=== PATIENT | male | born 1955 | race Caucasian/White ===

== ENCOUNTER 2016-09-07 21:40 | Inpatient (IN) | payer BC ==
[~2016-09-07] VITALS: Ht 182.9 cm; Wt 95.8 kg
[2016-09-07] MEDS ORDERED: NXM/40 PO (23:44)
[2016-09-07] MEDS ORDERED: ZOLP5TAB PO (23:44)
[2016-09-07] MEDS ORDERED: SODIUM CHLORIDE 0.9% 1000ML 1,000 ML IV SCH (23:53)
--- NOTE | 2016-09-07 23:53 | History and Physical ---
History & Physical Date & Time of Service: September 07, 2016 at 23:53 Chief Complaint: Sepsis Primary Care Physician: No Doctor, Assigned History of Present Illness Source: patient The patient is a 61-year-old male who underwent a prostate biopsy by Dr. Js Avila on September 05 for elevated PSA. Yesterday he started to develop a fever with generalized joint pain and right flank pain which then radiated to his right groin. He presented to the emergency department at [facility] had a workup consistent with prostatitis sepsis and was then referred for transfer to [facility] for further treatment. The patient reports his joint pains primarily in his lower extremities. He denies nausea, vomiting, chest pain, blood in urine or stool. He did briefly feel lightheaded and dizzy, but was not presyncopal. Social History Smoking Status: Current Every Day Smoker Smokeless Tobacco Use: No Drug Use: none Marital Status: Housing status: lives with family Occupational Status: employed Multi-Drug Resistant Organisms History of MDRO: No Allergies Coded Allergies: No Known Allergies (Unverified , 09/07/16) Home Medications Scheduled Esomeprazole Magnesium (Nexium), 40 MG PO DAILY Zolpidem Tartrate (Ambien), 5 MG PO HS Review of Systems Constitutional: + chills, + fatigue, + fever, + sweats, + weakness, No weight loss Eyes: No diplopia, No discharge, No eye pain, No problem reported, No redness, No worsening of vision ENT: No dental problems, No hearing loss, No nasal symptoms, No problem reported, No sore throat, No tinnitus, No trouble swallowing, No unusual epistaxis Respiratory: No cough, No dyspnea at rest, No dyspnea on exertion, No hemoptysis, No problem reported, No shortness of breath, No sputum, No wheezing Cardiovascular: No PND, No chest pain, No claudication, No edema, No orthopnea , No palpitations, No problem reported Abdomen: + pain (right flank to right groin), No GI bleeding, No constipation, No diarrhea, No nausea, No vomiting Musculoskeletal: + joint pain, + muscle pain Genitourinary - Male: + hematuria, No dysuria, No impotence, No lesions, No penile discharge, No urinary frequency, No urinary hesitancy, No urinary incontinence, No urinary retention, No urinary urgency Neurologic: No balance problems, No memory loss, No numbness/tingling, No paralysis, No problem reported, No vertigo, No weakness Psychiatric: No anhedonism, No anxiety, No depression symptoms, No insomnia, No problem reported, No substance abuse Endocrine: No excessive thirst, No excessive urination, No fatigue, No problem reported Hematologic / Lymphatic: No abnormal bleeding/bruising, No clotting problems, No night sweats, No problem reported, No swollen lymph nodes Integumentary: No bleeding, No color change, No itch, No new/changing skin lesions, No problem reported, No rash Allergic / Immunologic: No environmental allergies, No food allergies, No frequent infections, No hives, No pet sensitivities, No poor healing, No problem reported, No prolonged convalescence, No seasonal allergies Physical Exam General Appearance: WD/WN, no apparent distress Head: normocephalic, atraumatic Eyes: normal inspection, PERRL, EOMI, sclerae normal ENT: normal ENT inspection, hearing grossly normal, pharynx normal Neck: supple, no adenopathy, thyroid normal, no JVD, no carotid bruits, trachea midline Respiratory/Chest: chest non-tender, lungs clear, normal breath sounds, no respiratory distress, no accessory muscle use Cardiovascular: regular rate, rhythm, no edema, no gallop, no JVD, no murmur, normal peripheral pulses Abdomen/GI: normal bowel sounds, soft, no organomegaly, no pulsatile mass, + tenderness (right flank to right groin) Back: normal inspection, no CVA tenderness, no muscle spasm, normal range of motion Extremities/Musculoskelatal: normal inspection, no calf tenderness, normal capillary refill, no pedal edema, normal range of motion Neurologic/Psych: c application developer II-XII nml as tested, no motor/sensory deficits, alert, normal mood/affect, oriented x 3 Skin: normal color, warm/dry, no rash Lymphatic: no adenopathy Impression Assessment and Plan Acute prostatitis status post prostate biopsy/SIRS--the patient will be admitted to the telemetry unit for close blood pressure monitoring. He received vancomycin IV and Zosyn IV at [facility]. He'll be admitted on Zosyn IV and Cipro IV, normal saline with potassium chloride 20 mEq at 150 ML's per hour , Zofran 4 mg IV every 6 hours when necessary, tramadol 50-100 mg by mouth every 4 hours when necessary, and morphine sulfate 2-4 mg IV every 2 hours when necessary. Urinalysis and urine culture and sensitivity was performed at [facility], and I repeated here along with blood cultures. We'll consult Dr. Js Avila from urology. GERD--change Nexium 40 mg by mouth daily to pantoprazole 40 mg by mouth daily. Hypomagnesemia--level here was 1.7. He'll be given mag sulfate 1 g IV. Insomnia--continue zolpidem tartrate 5 mg by mouth at bedtime. Level of Care Telemetry Advanced Directives Existing Advance Directive: No Existing Living Will: No Existing Power of Valet Service Attendant: No Resuscitation Status FULL RESUSCITATION VTE Prophylaxis Given or contraindicated: SCD's Social Service Consult None Apply
[2016-09-07] MEDS ORDERED: CIPROFLOXACIN 400MG / 200ML D5W IV STA (23:59)
[2016-09-08] VITALS (10 sets, daily range): BP systolic 111–150; BP diastolic 64–88; PULSE 110–120; TEMP 37.3–38.5; O2SAT 92–95; Ht 182.9 cm; Wt 95.8 kg
[2016-09-08] MEDS ORDERED: TRAMADOL HCL 50 MG TAB PO PRN
[2016-09-08] MEDS ORDERED: MoRPHine SULFATE 4 MG/ML 1 ML CARP\\VIAL IV PRN
[2016-09-08] MEDS ORDERED: MoRPHine SULFATE 2 MG/ML CARP IV PRN
[2016-09-08] MEDS: ONDANSETRON INJ 2 MG/ML 2 ML VIAL IV PRN ×2 (00:19→15:14)
[2016-09-08] MEDS: CIPROFLOXACIN / D5W 400 MG in PREMIXED IN D5W 200 ML IV SCH ×3 (00:24→23:06)
[2016-09-08 00:36] LABS: URINE APPEARANCE CLEAR (CLEAR); URINE BILIRUBIN NEG (NEG); URINE COLOR YELLOW; URINE EPITHELIAL CELL AUTO >30 /lpf (0-5); URINE NITRITE NEG (NEG); URINE SPECIFIC GRAVITY 1.017 (1.000-1.030); UROBILINOGEN NEG (NEG)
[2016-09-08 00:46] LABS: MEAN CORPUSCULAR HEMOGLOBIN 30.3 pg (25-34); PLATELET COUNT 210 K/uL (130-400); RED BLOOD COUNT 4.89 M/uL (4.7-6.1); WHITE BLOOD COUNT 13.08 K/uL (4.8-10.8)
[2016-09-08 00:48] LABS: MANUAL MICROSCOPIC REQUIRED? NO; REVIEW REQ? YES
[2016-09-08 01:06] LABS: ALT/SGPT 21 U/L (12-78); AST/SGOT 14 U/L (15-37); BLOOD UREA NITROGEN 16 mg/dl (7-18); BUN/CREATININE RATIO 14.5 (10-20); CALCIUM 8.1 mg/dl (8.5-10.1); CARBON DIOXIDE 25 mmol/L (21-32); CHLORIDE 106 mmol/L (98-107); GLUCOSE 97 mg/dl (70-99); MAGNESIUM 1.7 mg/dl (1.8-2.4); POTASSIUM 3.6 mmol/L (3.5-5.1); SODIUM 141 mmol/L (136-145)
[2016-09-08 01:13] LABS: ALKALINE PHOSPHATASE 81 U/L (45-117)
[2016-09-08 01:27] LABS: BASO % 0.2 %; BASO ABS # 0.03 K/uL (0-0.2); COMPLETE YES; EOS % 0.4 %; IG% 0.3 %; LYMPH % 7.6 %; MEAN CORPUSCULAR HGB CONC 33.6 g/dl (32-36); MONO % 3.7 %; NEUT % 87.8 %
[2016-09-08] MEDS ORDERED: MAGNESIUM SULFATE 1GM / D5W 1 GM in PREMIXED IN D5W 100 ML IV STA (02:04)
[2016-09-08] MEDS: POTASSIUM CHLORIDE INJ 20 MEQ in SODIUM CHLORIDE 0.9% 1000ML 1,000 ML IV SCH ×4 (02:15→22:43)
[2016-09-08] MEDS ORDERED: PIPERACILLIN/TAZOBACTAM 4.5 GM/100ML D5W IV STA (02:23)
[2016-09-08] MEDS ORDERED: PIPERACILL/TAZOBAC IV 4.5 GM in DEXTROSE 5% 100ML IV STA (02:36)
[2016-09-08] MEDS ORDERED: PIPERACILL/TAZOBAC CONSULT ACTIVE PRN (03:00)
[2016-09-08 06:44] LABS: BASO % 0.2 %; BASO ABS # 0.02 K/uL (0-0.2); COMPLETE YES; HEMATOCRIT 41.5 % (42-52); IG% 0.4 %; LYMPH % 4.8 %; LYMPH ABS # 0.56 K/uL (1.2-3.4); MEAN CELL VOLUME 91.6 fL (80-100); MEAN CORPUSCULAR HEMOGLOBIN 30.7 pg (25-34); MEAN CORPUSCULAR HGB CONC 33.5 g/dl (32-36); MEAN PLATELET VOLUME 10.1 fL (7.4-10.4); MONO % 5.2 %; NEUT % 89.4 %; PLATELET COUNT 191 K/uL (130-400); RED BLOOD COUNT 4.53 M/uL (4.7-6.1); WHITE BLOOD COUNT 11.58 K/uL (4.8-10.8)
[2016-09-08 07:11] LABS: BUN/CREATININE RATIO 14.3 (10-20); CALCIUM 8.6 mg/dl (8.5-10.1); CREATININE 1.3 mg/dl (0.60-1.40); MAGNESIUM 2.4 mg/dl (1.8-2.4)
[2016-09-08] MEDS: PIPERACILL/TAZOBAC IV 3.375 GM in DEXTROSE 5% 100ML 100 ML IV SCH ×2 (07:53→16:21)
[2016-09-08] MEDS: PANTOprazole SOD 40 MG TAB PO SCH (07:54)
[2016-09-08] MEDS: ACETAMINOPHEN 325 MG TAB PO PRN (07:56)
--- NOTE | 2016-09-08 11:09 | Urology Consultation ---
History General Date of Service: September 08, 2016. Primary Care Physician: No Doctor, Assigned Pt seen a urologist before?: Yes If yes, why?: elevated PSA History of Present Illness 61y/o male s/p recent prostate biopsy for elevated PSA - was progressing well after the biopsy until last evening - started to have fevers and general malaise - was on cipro sujata-procedure - no hematuria - no dysuria - reported to the [facility] ER - they refused to admit and transferred him here after obtaining cultures and starting vanc and zosyn - he is dramatically improved this AM - minimal discomfort - some fatigue, but otherwise feeling well Laboratory Labs were reviewed and are within normal limits unless listed below. Labs are available in the chart and at [facility] Past History GERD Pt had a problem w anesthesia?: No Past Surgical History: other Social History Hx Tobacco Use In Past Year?: Yes Smokin pack/day Marital status: Housing status: lives with family Occupation status: employed History of MDRO No Allergies Coded Allergies: No Known Allergies (Unverified , 09/07/16) Medications Home Medications: Home Meds and Scripts Medications Dose Route/Sig Max Daily Dose Days Date Category Ambien (Zolpidem Tartrate) 5 Mg Tab 5 Mg PO HS 09/07/16 Reported Nexium (Esomeprazole Magnesium) 40 Mg Capcr 40 Mg PO DAILY 09/07/16 Reported Inpatient Medications: Current Inpatient Medications Medications (Trade) Dose Ordered Sig/Fco Route Start Time Stop Time Status Last Admin Dose Admin Acetaminophen (Tylenol Tab) 650 mg Q4H PRN PO 09/08/16 00:00 10/08/16 00:00 09/08/16 07:56 650 MG Ondansetron HCl (Zofran Inj) 4 mg Q6H PRN IV 09/08/16 00:00 10/08/16 00:00 09/08/16 00:19 4 MG Morphine Sulfate (MoRPHine SULFATE INJ) 2 mg Q2H PRN IV 09/08/16 00:00 09/22/16 00:00 Morphine Sulfate (MoRPHine SULFATE INJ) 4 mg Q2H PRN IV 09/08/16 00:00 09/22/16 00:00 09/08/16 00:45 4 MG Tramadol HCl (Ultram Tab) 100 mg Q4H PRN PO 09/08/16 00:00 10/08/16 00:00 Tramadol HCl (Ultram Tab) 50 mg Q4H PRN PO 09/08/16 00:00 10/08/16 00:00 Zolpidem Tartrate (Ambien Tab) 5 mg HS PO 09/08/16 21:00 10/08/16 20:59 Pantoprazole Sodium 40 mg 40 mg QAM PO 09/08/16 09:00 10/08/16 08:59 09/08/16 07:54 40 MG Ciprofloxacin/ Dextrose 400 mg/ Prmx 200 ml @ 100 mls/hr Q12H IV 09/08/16 00:00 09/18/16 00:00 09/08/16 00:24 100 MLS/HR Potassium Chloride 20 meq/ Sodium Chloride 1,010 ml @ 150 mls/hr Q6H44M IV 09/08/16 02:15 09/08/16 07:53 150 MLS/HR Piperacillin Sod/ Tazobactam Sod/ Dextrose (Zosyn Iv/D5 100ml) 115 ml @ 28.75 mls/ hr Q8H IV 09/08/16 08:00 09/18/16 07:59 09/08/16 07:53 28.75 MLS/HR Piperacillin Sod/ Tazobactam Sod (Consult) 1 ea UD PRN N/A 09/08/16 03:00 10/08/16 02:59 Review of Systems Review of Systems Constitutional: + fever Eyes: No blurred vision, No double vision, No eye pain, No loss of night vision , No problem reported, No see HPI Neurological: No dizzy, No numbness/tingling, No passing out, No problem reported, No see HPI, No seizures Endocrine: No excessive thirst, No problem reported, No see HPI, No tired/ sluggish, No too cold, No too hot Gastrointestinal: + abdominal pain Cardiovascular: No angina, No chest pain, No heart murmur, No irregular heartbeat, No palpitations, No problem reported, No see HPI, No swelling ankles/ feet Respiratory: No chronic cough, No coughing up blood, No problem reported, No see HPI, No shortness of breath, No wheezing Skin: No boils, No dry skin, No problem reported, No rash, No see HPI Musculoskeletal: + joint pain Blood / Lymphatic: No bleed easily, No bruise easily, No problem reported, No see HPI, No swollen glands Ears / Nose / Throat: No hearing loss, No hoarse voice, No problem reported, No see HPI, No sinus, No sore throat Psychologic / Mental: No difficulty sleeping, No nervous, No problem reported, No see HPI, No trouble remembering Male : + problem reported All Other Systems: Reviewed and Negative Physical Exam Vital Signs: Vital Signs Past 12 Hours Date Time Temp Pulse Resp B/P Pulse Ox O2 Delivery O2 Flow Rate FiO2 09/08/16 09:13 37.8 09/08/16 08:00 Room Air 09/08/16 07:56 38.5 118 18 113/64 92 Room Air 09/08/16 04:27 92 Room Air 09/08/16 03:21 37.7 120 20 132/88 92 Room Air 09/08/16 00:02 37.7 118 18 111/70 95 Room Air Physical Exam: General Appearance: WD/WN, no apparent distress Eyes: bilateral eyes normal inspection ENT: hearing grossly normal Neck: no adenopathy Respiratory/Chest: no respiratory distress, no accessory muscle use Cardiovascular: no edema Gastrointestinal: Abdomen: normal abdomen Extremities: no pedal edema, no calf tenderness Neurologic/Psychiatric: alert, normal mood/affect, + abnormal cerebellar tests Skin: normal color, warm/dry Lymphatic: no adenopathy Assessment & Plan Assessment & Plan Bacteremia after prostate biopsy - cultures collected on arrival here - but after he had received IV abx at [facility] - hopeful appropriate cultures were collected at that facility prior to transfer - once resistance pattern is identified, transition to PO abx for 10d and d/c home - feeling well now - we did review his pathology - all cores were benign
[2016-09-08] MEDS: TRAMADOL HCL 50 MG TAB PO PRN (12:12)
--- NOTE | 2016-09-08 13:02 | Family Medicine Progress Note ---
Progress Note Date of Service September 08, 2016. Subjective Pt evaluation today including: conversation w/ patient, physical exam, chart review, lab review, review of studies Pain: No pain reported this morning Voiding: no voiding problems Patient reports he is feeling much better this morning, and even starting to feel improvement yesterday at 8pm. This morning his back pain is improved with only some slight discomfort on the left flank, and the joint pain in his legs has for the most part resolved. Constitutional: + fever, No chills, No sweats Respiratory: No cough, No shortness of breath Cardiovascular: No chest pain, No palpitations Abdomen: No nausea, No pain, No vomiting Musculoskeletal: + joint pain Male : No dysuria, No hematuria Medications Current Inpatient Medications Medications (Trade) Dose Ordered Sig/Fco Route Start Time Stop Time Status Last Admin Dose Admin Acetaminophen (Tylenol Tab) 650 mg Q4H PRN PO 09/08/16 00:00 10/08/16 00:00 09/08/16 07:56 650 MG Ondansetron HCl (Zofran Inj) 4 mg Q6H PRN IV 09/08/16 00:00 10/08/16 00:00 09/08/16 00:19 4 MG Morphine Sulfate (MoRPHine SULFATE INJ) 2 mg Q2H PRN IV 09/08/16 00:00 09/22/16 00:00 Morphine Sulfate (MoRPHine SULFATE INJ) 4 mg Q2H PRN IV 09/08/16 00:00 09/22/16 00:00 09/08/16 00:45 4 MG Tramadol HCl (Ultram Tab) 100 mg Q4H PRN PO 09/08/16 00:00 10/08/16 00:00 09/08/16 12:12 100 MG Tramadol HCl (Ultram Tab) 50 mg Q4H PRN PO 09/08/16 00:00 10/08/16 00:00 Zolpidem Tartrate (Ambien Tab) 5 mg HS PO 09/08/16 21:00 10/08/16 20:59 Pantoprazole Sodium 40 mg 40 mg QAM PO 09/08/16 09:00 10/08/16 08:59 09/08/16 07:54 40 MG Ciprofloxacin/ Dextrose 400 mg/ Prmx 200 ml @ 100 mls/hr Q12H IV 09/08/16 00:00 09/18/16 00:00 09/08/16 12:11 100 MLS/HR Potassium Chloride 20 meq/ Sodium Chloride 1,010 ml @ 150 mls/hr Q6H44M IV 09/08/16 02:15 09/08/16 07:53 150 MLS/HR Piperacillin Sod/ Tazobactam Sod/ Dextrose (Zosyn Iv/D5 100ml) 115 ml @ 28.75 mls/ hr Q8H IV 09/08/16 08:00 09/18/16 07:59 09/08/16 07:53 28.75 MLS/HR Piperacillin Sod/ Tazobactam Sod (Consult) 1 ea UD PRN N/A 09/08/16 03:00 10/08/16 02:59 Objective Vital Signs Date Time Temp Pulse Resp B/P Pulse Ox O2 Delivery O2 Flow Rate FiO2 09/08/16 09:13 37.8 09/08/16 08:00 Room Air 09/08/16 07:56 38.5 118 18 113/64 92 Room Air 09/08/16 04:27 92 Room Air 09/08/16 03:21 37.7 120 20 132/88 92 Room Air 09/08/16 00:02 37.7 118 18 111/70 95 Room Air Physical Exam General Appearance: WD/WN, no apparent distress Eyes: normal inspection, sclerae normal Neck: supple, no carotid bruits Respiratory/Chest: chest non-tender, lungs clear, normal breath sounds, no respiratory distress, no accessory muscle use Cardiovascular: no edema, no gallop, no murmur, + tachycardia Abdomen: normal bowel sounds, non tender, soft Extremities: no pedal edema, no calf tenderness Neurologic/Psychiatric: alert, normal mood/affect, oriented x 3 Notes: Left sided flank tenderness Laboratory Results Results Past 24 Hours Test 09/08/16 00:15 09/08/16 00:20 09/08/16 06:07 Range/Units Urine Color YELLOW Urine Appearance CLEAR CLEAR Urine pH 6.0 4.5-7.5 Urine Specific [place] 1.017 1.000-1.030 Urine Protein NEG NEG Urine Glucose (UA) NEG NEG Urine Ketones NEG NEG Urine Occult Blood 3+ NEG Urine Nitrite NEG NEG Urine Bilirubin NEG NEG Urine Urobilinogen NEG NEG Urine Leukocyte Esterase MODERATE NEG Urine WBC (Auto) >30 0-5 /hpf Urine RBC (Auto) >30 0-4 /hpf Urine Hyaline Casts (Auto) 1-5 0-5 /lpf Urine Epithelial Cells (Auto) >30 0-5 /lpf Urine Bacteria (Auto) NEG NEG Urine Renal Epithelial Cells 0-5 /lpf White Blood Count 13.08 11.58 4.8-10.8 K/uL Red Blood Count 4.89 4.53 4.7-6.1 M/uL Hemoglobin 14.8 13.9 14.0-18.0 g/dL Hematocrit 44.0 41.5 42-52 % Mean Corpuscular Volume 90.0 91.6 80-100 fL Mean Corpuscular Hemoglobin 30.3 30.7 25-34 pg Mean Corpuscular Hemoglobin Concent 33.6 33.5 32-36 g/dl Platelet Count 210 191 130-400 K/uL Mean Platelet Volume 10.0 10.1 7.4-10.4 fL Neutrophils (%) (Auto) 87.8 89.4 % Lymphocytes (%) (Auto) 7.6 4.8 % Monocytes (%) (Auto) 3.7 5.2 % Eosinophils (%) (Auto) 0.4 0.0 % Basophils (%) (Auto) 0.2 0.2 % Neutrophils # (Auto) 11.47 10.35 1.4-6.5 K/uL Lymphocytes # (Auto) 1.00 0.56 1.2-3.4 K/uL Monocytes # (Auto) 0.49 0.60 0.11-0.59 K/uL Eosinophils # (Auto) 0.05 0.00 0-0.5 K/uL Basophils # (Auto) 0.03 0.02 0-0.2 K/uL RDW Standard Deviation 43.4 45.1 36.4-46.3 fL RDW Coefficient of Variation 13.1 13.4 11.5-14.5 % Immature Granulocyte % (Auto) 0.3 0.4 % Immature Granulocyte # (Auto) 0.04 0.05 0.00-0.02 K/uL Sodium Level 141 138 136-145 mmol/L Potassium Level 3.6 4.0 3.5-5.1 mmol/L Chloride Level 106 101 98-107 mmol/L Carbon Dioxide Level 25 28 21-32 mmol/L Anion Gap 10.0 9.0 3-11 mmol/L Blood Urea Nitrogen 16 19 7-18 mg/dl Creatinine 1.10 1.30 0.60-1.40 mg/dl Estimated GFR () 82.4 67.3 Estimated GFR (Non- 71.1 58.1 BUN/Creatinine Ratio 14.5 14.3 10-20 Random Glucose 97 113 70-99 mg/dl Calcium Level 8.1 8.6 8.5-10.1 mg/dl Magnesium Level 1.7 2.4 1.8-2.4 mg/dl Total Bilirubin 2.1 0.2-1 mg/dl Aspartate Amino Transf (AST/SGOT) 14 15-37 U/L Alanine Aminotransferase (ALT/SGPT) 21 12-78 U/L Alkaline Phosphatase 81 45-117 U/L Total Protein 7.1 6.4-8.2 gm/dl Albumin 3.6 3.4-5.0 gm/dl Globulin 3.5 2.5-4.0 gm/dl Albumin/Globulin Ratio 1.0 0.9-2 Est Creatinine Clear Calc Drug Dose 69.5 ml/min Microbiology Results 09/08/16 Blood Culture, Received Pending 09/08/16 Blood Culture, Received Pending 09/08/16 Urine Culture, Received Pending Assessment and Plan Patient is a 61 year old male that presents with bacteremia s/p prostate biopsy 1) Bacteremia 2/2 Prostatitis - S/p Prostate Biopsy on September 05 - pathology results benign - IV Zosyn and IV Ciprofloxacin Day 2 - Tramadol 100mg q4h PRN - Urology on board - Culture obtained on admission but already received dose of IV Antibiotics at [facility]. Obtain records from [facility] to see if culture was performed prior to antibiotic administration - Continue IV antibiotics until culture and sensitivities obtained then will transition to PO antibiotics for a 10 day course as per Urology recommendations - Zofran 4mg IV q6h PRN - Morphine 4mg IV q2h PRN 2) Hypomagnesemia (Mg 1.7 on admission) - Resolved (2.4) after administration of 1g IV Mg 3) GERD - Protonix 40 mg PO QAM 4) DVT - SCD 5) Code Status - Full Resuscitation Reviewed: Pt Seen/Exam by Me History continued fever. feeling much better though Respiratory: negative: short of breath Cardiovascular: denies chest pain Gastrointestinal/Abdominal: negative: abdominal pain General Appearance: no apparent distress Respiratory: lungs clear, no respiratory distress Cardiovascular: regular rate, rhythm Neurologic/Psychiatric: alert, oriented x 3 Skin Characteristics: warm/dry Assessment/Plan I have reviewed the medical record and performed a history and physical examination of this patient today. I have discussed the case with Dr. Segovia. The above note reflects my findings, conclusions, and recommendations.
[2016-09-08] MEDS: ZOLPIDEM TARTRATE 5 MG TAB PO SCH (22:43)
[2016-09-09] VITALS (7 sets, daily range): BP systolic 107–138; BP diastolic 63–77; PULSE 89–102; TEMP 36.9–38.4; O2SAT 90–95
[2016-09-09] MEDS: PIPERACILL/TAZOBAC IV 3.375 GM in DEXTROSE 5% 100ML 100 ML IV SCH ×3 (01:26→16:13)
[2016-09-09] MEDS: ACETAMINOPHEN 325 MG TAB PO PRN (03:30)
[2016-09-09 06:32] LABS: BASO % 0.4 %; BASO ABS # 0.03 K/uL (0-0.2); COMPLETE YES; EOS % 0.3 %; HEMATOCRIT 38.2 % (42-52); IG% 0.5 %; LYMPH % 8.9 %; LYMPH ABS # 0.69 K/uL (1.2-3.4); MEAN CELL VOLUME 91.6 fL (80-100); MEAN CORPUSCULAR HEMOGLOBIN 29.7 pg (25-34); MEAN CORPUSCULAR HGB CONC 32.5 g/dl (32-36); MEAN PLATELET VOLUME 9.9 fL (7.4-10.4); MONO % 8.1 %; NEUT % 81.8 %; PLATELET COUNT 159 K/uL (130-400); RED BLOOD COUNT 4.17 M/uL (4.7-6.1); WHITE BLOOD COUNT 7.76 K/uL (4.8-10.8)
[2016-09-09 06:51] LABS: BUN/CREATININE RATIO 11.2 (10-20); CALCIUM 8.1 mg/dl (8.5-10.1); CREATININE 1.2 mg/dl (0.60-1.40); MAGNESIUM 2.2 mg/dl (1.8-2.4); POTASSIUM 4.1 mmol/L (3.5-5.1)
[2016-09-09] MEDS: PANTOprazole SOD 40 MG TAB PO SCH (07:50)
[2016-09-09] MEDS: POTASSIUM CHLORIDE INJ 20 MEQ in SODIUM CHLORIDE 0.9% 1000ML 1,000 ML IV SCH ×2 (07:50→12:14)
[2016-09-09] MEDS: CIPROFLOXACIN / D5W 400 MG in PREMIXED IN D5W 200 ML IV SCH ×2 (12:14→23:18)
--- NOTE | 2016-09-09 13:25 | Family Medicine Progress Note ---
Progress Note Date of Service September 09, 2016. Subjective Pt evaluation today including: conversation w/ patient, physical exam, chart review, lab review, review of studies Pain: No pain reported this morning Voiding: no voiding problems Patient is resting comfortably in bed this morning with no acute complaints overnight. The patient states he no longer has joint tenderness and is feeling much improved since yesterday. He denies any nausea, vomiting, abdominal pain, headache, or dysuria. Constitutional: No chills, No fatigue, No fever, No sweats Respiratory: No cough, No shortness of breath, No sputum Cardiovascular: No chest pain, No edema, No palpitations Abdomen: No diarrhea, No nausea, No pain, No vomiting Male : No dysuria, No hematuria Medications Current Inpatient Medications Medications (Trade) Dose Ordered Sig/Fco Route Start Time Stop Time Status Last Admin Dose Admin Acetaminophen (Tylenol Tab) 650 mg Q4H PRN PO 09/08/16 00:00 10/08/16 00:00 09/09/16 03:30 650 MG Ondansetron HCl (Zofran Inj) 4 mg Q6H PRN IV 09/08/16 00:00 10/08/16 00:00 09/08/16 15:14 4 MG Morphine Sulfate (MoRPHine SULFATE INJ) 2 mg Q2H PRN IV 09/08/16 00:00 09/22/16 00:00 Morphine Sulfate (MoRPHine SULFATE INJ) 4 mg Q2H PRN IV 09/08/16 00:00 09/22/16 00:00 09/08/16 00:45 4 MG Tramadol HCl (Ultram Tab) 100 mg Q4H PRN PO 09/08/16 00:00 10/08/16 00:00 09/08/16 12:12 100 MG Tramadol HCl (Ultram Tab) 50 mg Q4H PRN PO 09/08/16 00:00 10/08/16 00:00 Zolpidem Tartrate (Ambien Tab) 5 mg HS PO 09/08/16 21:00 10/08/16 20:59 09/08/16 22:43 5 MG Pantoprazole Sodium 40 mg 40 mg QAM PO 09/08/16 09:00 10/08/16 08:59 09/09/16 07:50 40 MG Ciprofloxacin/ Dextrose 400 mg/ Prmx 200 ml @ 100 mls/hr Q12H IV 09/08/16 00:00 09/18/16 00:00 09/09/16 12:14 100 MLS/HR Potassium Chloride 20 meq/ Sodium Chloride 1,010 ml @ 150 mls/hr Q6H44M IV 09/08/16 02:15 09/09/16 12:14 150 MLS/HR Piperacillin Sod/ Tazobactam Sod/ Dextrose (Zosyn Iv/D5 100ml) 115 ml @ 28.75 mls/ hr Q8H IV 09/08/16 08:00 09/18/16 07:59 09/09/16 07:50 28.75 MLS/HR Piperacillin Sod/ Tazobactam Sod (Consult) 1 ea UD PRN N/A 09/08/16 03:00 10/08/16 02:59 Objective Vital Signs Date Time Temp Pulse Resp B/P Pulse Ox O2 Delivery O2 Flow Rate FiO2 09/09/16 12:00 Room Air 09/09/16 11:43 37.1 92 18 131/76 92 Room Air 09/09/16 08:00 Room Air 09/09/16 07:21 36.9 89 18 107/72 94 Room Air 09/09/16 04:18 37.6 09/09/16 04:00 Room Air 09/09/16 03:20 38.4 102 18 118/63 90 Room Air 09/09/16 00:00 Room Air 09/08/16 22:53 37.9 114 19 114/68 92 Room Air 09/08/16 20:00 Room Air 09/08/16 19:56 37.4 111 16 136/68 93 Room Air 09/08/16 16:00 92 Room Air 09/08/16 15:31 37.3 112 18 150/77 92 Room Air Physical Exam General Appearance: WD/WN, no apparent distress Eyes: normal inspection, sclerae normal Neck: supple, no carotid bruits Respiratory/Chest: chest non-tender, lungs clear, normal breath sounds Cardiovascular: regular rate, rhythm, no edema, no gallop, no murmur Abdomen: normal bowel sounds, non tender, soft Extremities: no pedal edema, no calf tenderness Neurologic/Psychiatric: alert, normal mood/affect, oriented x 3 Laboratory Results Results Past 24 Hours Test 09/09/16 05:50 Range/Units White Blood Count 7.76 4.8-10.8 K/uL Red Blood Count 4.17 4.7-6.1 M/uL Hemoglobin 12.4 14.0-18.0 g/dL Hematocrit 38.2 42-52 % Mean Corpuscular Volume 91.6 80-100 fL Mean Corpuscular Hemoglobin 29.7 25-34 pg Mean Corpuscular Hemoglobin Concent 32.5 32-36 g/dl Platelet Count 159 130-400 K/uL Mean Platelet Volume 9.9 7.4-10.4 fL Neutrophils (%) (Auto) 81.8 % Lymphocytes (%) (Auto) 8.9 % Monocytes (%) (Auto) 8.1 % Eosinophils (%) (Auto) 0.3 % Basophils (%) (Auto) 0.4 % Neutrophils # (Auto) 6.35 1.4-6.5 K/uL Lymphocytes # (Auto) 0.69 1.2-3.4 K/uL Monocytes # (Auto) 0.63 0.11-0.59 K/uL Eosinophils # (Auto) 0.02 0-0.5 K/uL Basophils # (Auto) 0.03 0-0.2 K/uL RDW Standard Deviation 45.8 36.4-46.3 fL RDW Coefficient of Variation 13.6 11.5-14.5 % Immature Granulocyte % (Auto) 0.5 % Immature Granulocyte # (Auto) 0.04 0.00-0.02 K/uL Sodium Level 138 136-145 mmol/L Potassium Level 4.1 3.5-5.1 mmol/L Chloride Level 106 98-107 mmol/L Carbon Dioxide Level 25 21-32 mmol/L Anion Gap 7.0 3-11 mmol/L Blood Urea Nitrogen 13 7-18 mg/dl Creatinine 1.20 0.60-1.40 mg/dl Est Creatinine Clear Calc Drug Dose 75.4 ml/min Estimated GFR () 74.1 Estimated GFR (Non- 64.0 BUN/Creatinine Ratio 11.2 10-20 Random Glucose 111 70-99 mg/dl Calcium Level 8.1 8.5-10.1 mg/dl Magnesium Level 2.2 1.8-2.4 mg/dl Assessment and Plan Patient is a 61 year old male that presents with bacteremia s/p prostate biopsy 1) Sepsis with Gram negative Bacteremia 2/2 Prostatitis - Feeling much improved today but had a fever recorded at 4am - DEE Umair 3/4 Cultures positive for gram negative bacteria, awaiting final cultures and sensitivities - S/p Prostate Biopsy on September 05 - pathology results benign - IV Zosyn and IV Ciprofloxacin Day 3 - Tramadol 100mg q4h PRN - Urology on board - Continue IV antibiotics until culture and sensitivities obtained then will transition to PO antibiotics for a 10 day course as per Urology recommendations - Zofran 4mg IV q6h PRN - Morphine 4mg IV q2h PRN 2) Leukocytosis 2/2 to Bacteremia - WBC 7.76 (yesterday 11.58) - Continue IV Zosyn and Cipro Day 3 3) Hypomagnesemia (Mg 1.7 on admission) - Resolved 4) GERD - Protonix 40 mg PO QAM 5) DVT - SCD 6) Code Status - Full Resuscitation Reviewed: Pt Seen/Exam by Me History continued to have overnight no other concerns Constitutional: acknowledges: fever Respiratory: negative: short of breath Cardiovascular: denies chest pain Gastrointestinal/Abdominal: negative: abdominal pain General Appearance: no apparent distress Respiratory: lungs clear, no respiratory distress Cardiovascular: regular rate, rhythm Gastrointestinal: normal bowel sounds, non tender, soft Neurologic/Psychiatric: alert, oriented x 3 Assessment/Plan I have reviewed the medical record and performed a history and physical examination of this patient today. I have discussed the case with Dr. Segovia. The above note reflects my findings, conclusions, and recommendations.
[2016-09-09] MEDS: TRAMADOL HCL 50 MG TAB PO PRN (15:41)
[2016-09-09] MEDS ORDERED: NURSING VERBAL MED ORDER ONE (18:15)
[2016-09-09] MEDS: ZOLPIDEM TARTRATE 5 MG TAB PO SCH (21:44)
[2016-09-10] VITALS (22 sets, daily range): BP systolic 74–143; BP diastolic 39–77; PULSE 81–116; TEMP 36.3–37.4; O2SAT 92–95
[2016-09-10] MEDS: PIPERACILL/TAZOBAC IV 3.375 GM in DEXTROSE 5% 100ML 100 ML IV SCH ×2 (01:36→07:24)
[2016-09-10 06:31] LABS: BASO % 0.5 %; BASO ABS # 0.03 K/uL (0-0.2); COMPLETE YES; EOS % 2.5 %; HEMATOCRIT 37.7 % (42-52); IG% 0.2 %; LYMPH % 11.1 %; LYMPH ABS # 0.62 K/uL (1.2-3.4); MEAN CELL VOLUME 90.4 fL (80-100); MEAN CORPUSCULAR HEMOGLOBIN 30.5 pg (25-34); MEAN CORPUSCULAR HGB CONC 33.7 g/dl (32-36); MONO % 10.7 %; PLATELET COUNT 157 K/uL (130-400); RED BLOOD COUNT 4.17 M/uL (4.7-6.1); WHITE BLOOD COUNT 5.61 K/uL (4.8-10.8)
[2016-09-10 07:02] LABS: BUN/CREATININE RATIO 9.8 (10-20); CALCIUM 8.6 mg/dl (8.5-10.1); CREATININE 0.97 mg/dl (0.60-1.40); MAGNESIUM 2.2 mg/dl (1.8-2.4); POTASSIUM 3.7 mmol/L (3.5-5.1)
[2016-09-10] MEDS: PANTOprazole SOD 40 MG TAB PO SCH (07:24)
--- NOTE | 2016-09-10 08:49 | Family Medicine Progress Note ---
Progress Note Date of Service September 10, 2016. Subjective Pt evaluation today including: conversation w/ patient, physical exam, chart review, lab review Patient feels well this morning, denies any acute issues overnight. He has no issues with urination, other than noticing a relative increase in frequency compared to at time of admission. No dysuria or hematuria. Says he has also experienced an improvement in appetite and slept well last night. Constitutional: No chills, No fatigue, No fever, No sweats, No weakness Respiratory: No cough, No shortness of breath, No wheezing Cardiovascular: No chest pain, No edema, No palpitations Abdomen: No GI bleeding, No constipation, No diarrhea, No nausea, No pain, No vomiting Male : No dysuria, No hematuria, No incontinence, No nocturia more than once/night, No urinary frequency Objective Vital Signs Date Time Temp Pulse Resp B/P Pulse Ox O2 Delivery O2 Flow Rate FiO2 09/10/16 08:00 Room Air 09/10/16 07:51 37.4 89 18 136/74 92 Room Air 09/10/16 04:00 Room Air 09/10/16 03:43 37.4 92 18 125/71 93 Room Air 09/10/16 00:00 Room Air 09/09/16 23:55 37.6 101 20 138/76 91 Room Air 09/09/16 20:02 Room Air 09/09/16 19:55 37.0 90 20 134/75 93 Room Air 09/09/16 16:02 37.1 95 16 135/77 95 Room Air 09/09/16 16:00 Room Air 09/09/16 12:00 Room Air 09/09/16 11:43 37.1 92 18 131/76 92 Room Air Physical Exam General Appearance: WD/WN, no apparent distress Eyes: normal inspection ENT: hearing grossly normal Neck: supple Respiratory/Chest: lungs clear, normal breath sounds, no respiratory distress, no accessory muscle use Cardiovascular: regular rate, rhythm, no edema, no murmur Abdomen: normal bowel sounds, non tender, soft Extremities: normal inspection, no pedal edema, no calf tenderness Neurologic/Psychiatric: alert, normal mood/affect, oriented x 3 Skin: normal color, warm/dry, no rash Notes: Re-assessment post anaphylaxis - Patient became symptomatic after transfusion of half of 1 dose of anaphylaxis. Patient had already received Solu-Medrol, diphenhydramine, and a fluid bolus at this point Erythema on all 4 extremities and fading hives visible on extensor surfaces. Patient still says it is pruritic. Minimal swelling on eyelids present, which patient says has been better since applying ice and receiving medication. No issues with breathing, no wheezing, no throat or tongue swelling. Some complaints of orthostatic symptoms. BP initially 76 systolic, subsequently improved to 104. Laboratory Results Results Past 24 Hours Test 09/10/16 05:43 09/10/16 11:28 09/10/16 15:50 Range/Units White Blood Count 5.61 4.8-10.8 K/uL Red Blood Count 4.17 4.7-6.1 M/uL Hemoglobin 12.7 14.0-18.0 g/dL Hematocrit 37.7 42-52 % Mean Corpuscular Volume 90.4 80-100 fL Mean Corpuscular Hemoglobin 30.5 25-34 pg Mean Corpuscular Hemoglobin Concent 33.7 32-36 g/dl Platelet Count 157 130-400 K/uL Mean Platelet Volume 10.0 7.4-10.4 fL Neutrophils (%) (Auto) 75.0 % Lymphocytes (%) (Auto) 11.1 % Monocytes (%) (Auto) 10.7 % Eosinophils (%) (Auto) 2.5 % Basophils (%) (Auto) 0.5 % Neutrophils # (Auto) 4.21 1.4-6.5 K/uL Lymphocytes # (Auto) 0.62 1.2-3.4 K/uL Monocytes # (Auto) 0.60 0.11-0.59 K/uL Eosinophils # (Auto) 0.14 0-0.5 K/uL Basophils # (Auto) 0.03 0-0.2 K/uL RDW Standard Deviation 44.8 36.4-46.3 fL RDW Coefficient of Variation 13.5 11.5-14.5 % Immature Granulocyte % (Auto) 0.2 % Immature Granulocyte # (Auto) 0.01 0.00-0.02 K/uL Sodium Level 136 138 136-145 mmol/L Potassium Level 3.7 3.5 3.5-5.1 mmol/L Chloride Level 102 104 98-107 mmol/L Carbon Dioxide Level 26 25 21-32 mmol/L Anion Gap 8.0 9.0 3-11 mmol/L Blood Urea Nitrogen 9 13 7-18 mg/dl Creatinine 0.97 1.50 0.60-1.40 mg/dl Est Creatinine Clear Calc Drug Dose 93.5 60.4 ml/min Estimated GFR () 95.9 56.6 Estimated GFR (Non- 82.7 48.8 BUN/Creatinine Ratio 9.8 8.4 10-20 Random Glucose 102 122 70-99 mg/dl Calcium Level 8.6 8.3 8.5-10.1 mg/dl Magnesium Level 2.2 2.0 1.8-2.4 mg/dl Bedside Glucose 115 70-99 mg/dl Assessment and Plan Patient is a 61 year old male without significant PMHx that was transferred from [facility] with E. Coli UTI and bacteremia following recent prostate biopsy. Sepsis with ESBL Ecoli bacteremia 2/2 prostatitis - Feeling much improved today. No pain or discomfort - not requiring PRN meds. Urology consulted- recs appreciated s/p prostate biopsy 09/05/16- pathology results benign. Was on IV vanc and Zosyn at [facility] and then switched to IV Zosyn and Ciprofloxacin at [facility] x 3 days. One dose of IV Ertapenem given before switching after adverse reaction. - IV Aztreonam 2g q8h - Morphine 4mg IV q2h PRN - Tramadol 100mg q4h PRN - Zofran 4mg IV q6h PRN Anaphylaxis 2/2 Ertapenam - ertapenam listed as allergy and discontinued. Epinephrine, high dose Solu-Medrol and diphenhydramine given stat to resolve immediate flushing, swelling and pruritic hives - IV NSS bolus - Solu-Medrol 60mg q6h - Diphenhydramine 25mg IV q6h Leukocytosis 2/2 to Bacteremia - 13.08 on admission, downtrended since commencing antibiotics, currently WNL - Continue antibiotics GERD - Protonix 40 mg PO qAM Hypomagnesemia - Mg 1.7 on admission, supplemented and since resolved. DVT prophylaxis - SCD Code Status - Full Resuscitation Continued [facility] stay due to: multiple IV medications needed Discharge planning: home Resident Tracking Resident Involvement: Resident Care Provided Care Provided: Adult Hospital Medicine Reviewed: Pt Seen/Exam by Me History Resident Physician Supervision Note: I was present with Dr. Dodge during the history and exam. I discussed the case with the resident and agree with the findings and plan as documented in the note. Any exceptions or clarifications are listed here: RN called and said pt was ahving all over body rash, swollen eyes, then BP dropped to 70s systolic after receiving IV ertapenem today. Switch abx was made for ease of administration after receiving report of ESBL E. coli from [facility]. Abx stopped and treated as above. Bps improved and anaphylaxis resolved. Tele with frequent PVCs just before and after admin of epi, then resolved, Vitals reviewed NAD Diffuse erythematous maculopapular rash on body, eyelids with edema, no tongue or lip swelling, airway patent RRR no mgr Lungs CTAB no wheezes and moving air throughout Abd soft NT ND +BS Ext no edema 61 yo male with ESBL E. coli sepsis and bacteremia after prostate bx, now with anaphylaxis due to Ertapenem. -Consulted ID and recommend Aztreonam for now and may transition to po Bactrim for at least 2 weeks but perhaps 30 days for prostatitis and bacteremia -continue steroids and benadryl for the next 24 hours Documented By: Olivia Patino
[2016-09-10] MEDS: CIPROFLOXACIN / D5W 400 MG in PREMIXED IN D5W 200 ML IV SCH (11:49)
[2016-09-10] MEDS ORDERED: ERTAPENEM IV 1 GM in SODIUM CHLOR 0.9% AD-VAN 50ML 50 ML IV ONE (12:30)
[2016-09-10] MEDS ORDERED: DiphenhydrAMINE HCL 50 MG/ML VIAL ONE (14:33)
[2016-09-10] MEDS ORDERED: NURSING VERBAL MED ORDER ONE ×3 (14:45→17:45)
[2016-09-10] MEDS ORDERED: EPINEPHRINE ADULT AUTO-INJECT 0.3 MG SYR IM STA (14:46)
[2016-09-10] MEDS ORDERED: METHYLPREDNISOLONE 125 MG in SYRINGE 0 ML IV ONE (15:00)
[2016-09-10] MEDS ORDERED: SODIUM CHLORIDE 0.9% 1000ML 1,000 ML IV SCH ×2 (16:15→17:30)
[2016-09-10 16:19] LABS: BUN/CREATININE RATIO 8.4 (10-20); CALCIUM 8.3 mg/dl (8.5-10.1); CREATININE 1.5 mg/dl (0.60-1.40); POTASSIUM 3.5 mmol/L (3.5-5.1)
--- NOTE | 2016-09-10 16:20 | Medical Consult ---
Consultation Date of Consultation: September 10, 2016. Attending Physician: Olivia Patino MD Reason for Consultation: ESBL E. Coli UTI History of Present Illness Patient is a 61 yo male who presented to [facility] from [facility] for concerns of E. Coli UTI and bacteremia. The patient underwent prostate biopsy by Dr. Avila on 09/05/16 and began to have fever, sweats, and chills on Saturday09/07/16 when he presented to the ED at [facility]. The patient was initially given IV Vancomycin and Zosyn and then transitioned to IV Ertapenem this afternoon for concerns of ESBL producing E. Coli on finalized cultures from [facility]. The patient was noted to have previous cultures showing E. Coli resistant to Unasyn, Tobramycin , Cefoxitin and Quinolones. Sensitivity was seen to Aztreonam, Ceftriaxone, Cefepime, Cefazolin, and carbapenems. Once started on IV Ertapenem, the patient quickly began to have an anaphylactic reaction during which time his lips swelled and he immediately broke out in hives. The abx was discontinued and the patient was treated for allergic reaction. He has since been changed to IV Aztreonam. He is doing well on my exam but continues to have some mild itching. The patient states that he had not been experiencing any hematuria, dysuria, urinary frequency, or urgency. He denies SOB, abdominal pain, N/V/D, or chest pain as well. WBC count on admission was 13.08 and has trended down to 5.61 since then. Creatinine increased to 1.50 this afternon. Repeat blood and urine cultures are showing no growth. Past Medical/Surgical History Medical Problems: (1) Prostatitis, acute (2) SIRS (systemic inflammatory response syndrome) Family History Noncontributory Social History Smoking Status: Current Every Day Smoker Smokeless Tobacco Use: No Drug Use: none Marital Status: Occupation Status: employed Allergies Coded Allergies: Ertapenem (Verified Allergy, Severe, ANAPHYLAXIS, 09/10/16) Patient receiving IV antibiotic ertapenem for first time. 1427 patient rings call stark complaining of general itching, hives and facial swelling. Iv infusion stopped immediately. 25mg IV Benadryl removed from omnicell and administered. Vital signs obtained. BP cuff cycling q5 minutes. 1441 patient BP hypotensive 74/39. Epi pen ordered STAT. 1L NSS bolus administered. Epi-pen administered to left thigh. Patient BP improving, vital signs cycled q5 minutes. Home Medications Reported Home Medications Medications Dose Route/Sig Max Daily Dose Days Date Category Ambien (Zolpidem Tartrate) 5 Mg Tab 5 Mg PO HS 09/07/16 Reported Nexium (Esomeprazole Magnesium) 40 Mg Capcr 40 Mg PO DAILY 09/07/16 Reported Current Inpatient Medications Current Inpatient Medications Medications (Trade) Dose Ordered Sig/Fco Route Start Time Stop Time Status Last Admin Dose Admin Acetaminophen (Tylenol Tab) 650 mg Q4H PRN PO 09/08/16 00:00 10/08/16 00:00 09/09/16 03:30 650 MG Ondansetron HCl (Zofran Inj) 4 mg Q6H PRN IV 09/08/16 00:00 10/08/16 00:00 09/08/16 15:14 4 MG Morphine Sulfate (MoRPHine SULFATE INJ) 2 mg Q2H PRN IV 09/08/16 00:00 09/22/16 00:00 Morphine Sulfate (MoRPHine SULFATE INJ) 4 mg Q2H PRN IV 09/08/16 00:00 09/22/16 00:00 09/08/16 00:45 4 MG Tramadol HCl (Ultram Tab) 100 mg Q4H PRN PO 09/08/16 00:00 10/08/16 00:00 09/09/16 15:41 100 MG Tramadol HCl (Ultram Tab) 50 mg Q4H PRN PO 09/08/16 00:00 10/08/16 00:00 Zolpidem Tartrate (Ambien Tab) 5 mg HS PO 09/08/16 21:00 10/08/16 20:59 09/09/16 21:44 5 MG Pantoprazole Sodium 40 mg 40 mg QAM PO 09/08/16 09:00 10/08/16 08:59 09/10/16 07:24 40 MG Aztreonam 2000 mg/ Dextrose 110 ml @ 100 mls/hr Q8H IV 09/10/16 15:30 09/24/16 15:29 UNV Methylprednisolone Sodium Succinate/ Syringe (Solu-Medrol IV/ Syringe) 0.96 ml @ 1.5 mls/min Q6 IV 09/10/16 18:00 10/10/16 17:59 Diphenhydramine HCl (Benadryl Inj) 25 mg Q6 IV 09/10/16 18:00 10/10/16 17:59 Miscellaneous Information (Nursing Verbal Med Order) 1 ea ONE ONCE N/A 09/10/16 16:15 09/10/16 16:16 UNV Review of Systems Did have lip swelling, facial swelling, rash, itch during Ertapenem infusion- now subsiding but patient has the "shakes" now. Constitutional: + chills, + fever, + sweats Eyes: No worsening of vision ENT: No hearing loss Respiratory: No cough, No sputum, No wheezing Cardiovascular: No chest pain Abdomen: No nausea, No pain, No vomiting Musculoskeletal: No joint pain Genitourinary - Male: No dysuria, No hematuria, No urinary frequency Integumentary: + itch (following reaction to Ertapenem- subsiding during my exam), + rash Physical Exam Date Time Temp Pulse Resp B/P Pulse Ox O2 Delivery O2 Flow Rate FiO2 09/10/16 15:51 104 138/77 94 Room Air 09/10/16 15:47 101 125/64 94 Room Air 09/10/16 15:41 98 107/72 94 Room Air 09/10/16 15:36 116 116/74 94 Room Air 09/10/16 15:31 36.7 102 113/73 95 Room Air 09/10/16 15:26 106 99/64 94 Room Air 09/10/16 15:26 36.7 106 18 99/64 94 Room Air 09/10/16 15:22 108 128/72 94 Room Air 09/10/16 15:06 102 105/58 09/10/16 15:00 85/53 09/10/16 14:56 36.3 105 93/60 09/10/16 14:48 103 81/43 09/10/16 14:41 102 74/39 09/10/16 14:40 36.5 105 16 94/60 93 Room Air 09/10/16 12:00 37.2 85 18 135/77 95 Room Air 09/10/16 12:00 Room Air 09/10/16 08:00 Room Air 09/10/16 07:51 37.4 89 18 136/74 92 Room Air 09/10/16 04:00 Room Air 09/10/16 03:43 37.4 92 18 125/71 93 Room Air 09/10/16 00:00 Room Air 09/09/16 23:55 37.6 101 20 138/76 91 Room Air 09/09/16 20:02 Room Air 09/09/16 19:55 37.0 90 20 134/75 93 Room Air General Appearance: WD/WN, no apparent distress Head: normocephalic, atraumatic Eyes: normal inspection, sclerae normal ENT: hearing grossly normal Neck: supple, trachea midline Respiratory/Chest: no respiratory distress, no accessory muscle use Cardiovascular: + tachycardia Abdomen/GI: non tender, soft Extremities/Musculoskelatal: normal inspection Neurologic/Psych: alert, normal mood/affect Skin: + rash (erythematous, confluent rash on the arms- mild excoriation from scratches) Laboratory Results Item Value Date Time Blood Culture - Preliminary Resulted 09/08/16 0034 Blood NO GROWTH TO DATE. Blood Culture - Preliminary Resulted 09/08/16 0020 Blood NO GROWTH TO DATE. Urine Culture - Final Complete 09/08/16 0015 Urine , Clean Catch NO GROWTH - LESS THAN 1,000 COLONIES/ML Last 24 Hours Test 09/10/16 05:43 09/10/16 11:28 09/10/16 15:50 White Blood Count 5.61 K/uL Red Blood Count 4.17 M/uL Hemoglobin 12.7 g/dL Hematocrit 37.7 % Mean Corpuscular Volume 90.4 fL Mean Corpuscular Hemoglobin 30.5 pg Mean Corpuscular Hemoglobin Concent 33.7 g/dl Platelet Count 157 K/uL Mean Platelet Volume 10.0 fL Neutrophils (%) (Auto) 75.0 % Lymphocytes (%) (Auto) 11.1 % Monocytes (%) (Auto) 10.7 % Eosinophils (%) (Auto) 2.5 % Basophils (%) (Auto) 0.5 % Neutrophils # (Auto) 4.21 K/uL Lymphocytes # (Auto) 0.62 K/uL Monocytes # (Auto) 0.60 K/uL Eosinophils # (Auto) 0.14 K/uL Basophils # (Auto) 0.03 K/uL RDW Standard Deviation 44.8 fL RDW Coefficient of Variation 13.5 % Immature Granulocyte % (Auto) 0.2 % Immature Granulocyte # (Auto) 0.01 K/uL Sodium Level 136 mmol/L Potassium Level 3.7 mmol/L Chloride Level 102 mmol/L Carbon Dioxide Level 26 mmol/L Anion Gap 8.0 mmol/L Blood Urea Nitrogen 9 mg/dl Creatinine 0.97 mg/dl Est Creatinine Clear Calc Drug Dose 93.5 ml/min Estimated GFR () 95.9 Estimated GFR (Non- 82.7 BUN/Creatinine Ratio 9.8 Random Glucose 102 mg/dl Calcium Level 8.6 mg/dl Magnesium Level 2.2 mg/dl Bedside Glucose 115 mg/dl Assessment & Plan Patient with E. Coli UTI and bacteremia transferred from [facility] following recent prostate biopsy. The patient was initially on IV Zosyn and Vancomycin then was changed to IV Ertapenem for ease of use and based on sensitivity pattern of E. Coli. The patient quickly had an anaphylactic reaction to Ertapenem- this was quickly discontinued. The patient was transitioned to IV Aztreonam. The E. Coli does not appear to be a true ESBL E. Coli with some sensitivity to Cephalosporins and Aztreonam. Recommend continuation of IV Aztreonam pending further improvement following reaction. Ultimately, this patient may be able to transition to PO Bactrim. We will continue to follow. PROVIDER ADDENDUM: Patient examined and reviewed with Ms. Mark. Agree with above assessment.
[2016-09-10] MEDS: DiphenhydrAMINE HCL 50 MG/ML VIAL IV SCH ×2 (17:31→23:05)
[2016-09-10] MEDS: AZTREONAM IV 2,000 MG in DEXTROSE 5% 100ML 100 ML IV SCH (17:31)
[2016-09-10] MEDS: METHYLPREDNISOLONE IV 60 MG in SYRINGE 0 ML IV SCH ×2 (17:34→23:05)
[2016-09-10] MEDS ORDERED: DiphenhydrAMINE INJ 25 MG in SYRINGE 0 ML IV SCH (18:00)
[2016-09-10] MEDS ORDERED: POTASSIUM CHLORIDE 20 MEQ TABCR PO ONE (18:15)
[2016-09-10] MEDS ORDERED: CLINDAMYCIN HCL 150 MG CAP PO ONE (20:22)
[2016-09-10] MEDS: ZOLPIDEM TARTRATE 5 MG TAB PO SCH (23:05)
[2016-09-11] MEDS: AZTREONAM IV 2,000 MG in DEXTROSE 5% 100ML 100 ML IV SCH ×2 (01:58→07:40)
[2016-09-11 03:47] VITALS: BP 129/75; PULSE 80; TEMP 36.6; O2SAT 94
[2016-09-11] MEDS: DiphenhydrAMINE HCL 50 MG/ML VIAL IV SCH ×2 (05:59→14:07)
[2016-09-11] MEDS: METHYLPREDNISOLONE IV 60 MG in SYRINGE 0 ML IV SCH ×2 (05:59→14:07)
[2016-09-11] MEDS ORDERED: CLINDAMYCIN HCL 150 MG CAP PO SCH (06:00)
[2016-09-11 06:22] LABS: COMPLETE YES; HEMATOCRIT 36.8 % (42-52); IG% 0.2 %; LYMPH ABS # 0.57 K/uL (1.2-3.4); MEAN CELL VOLUME 89.5 fL (80-100); MEAN CORPUSCULAR HEMOGLOBIN 31.4 pg (25-34); MEAN CORPUSCULAR HGB CONC 35.1 g/dl (32-36); MEAN PLATELET VOLUME 10.4 fL (7.4-10.4); MONO % 4.4 %; NEUT % 81.4 %; PLATELET COUNT 176 K/uL (130-400); RED BLOOD COUNT 4.11 M/uL (4.7-6.1); WHITE BLOOD COUNT 4.06 K/uL (4.8-10.8)
[2016-09-11 06:55] LABS: BUN/CREATININE RATIO 16.2 (10-20); CALCIUM 8.6 mg/dl (8.5-10.1); CREATININE 1.1 mg/dl (0.60-1.40); MAGNESIUM 2.6 mg/dl (1.8-2.4)
[2016-09-11 07:37] VITALS: BP 124/68; PULSE 88; TEMP 36.9; O2SAT 96
[2016-09-11] MEDS: PANTOprazole SOD 40 MG TAB PO SCH (07:40)
--- NOTE | 2016-09-11 10:24 | Infectious Disease Progress Nt ---
Progress Note Date of Service September 11, 2016. Subjective Pt evaluation today including: conversation w/ patient, physical exam, chart review, lab review, review of studies, review of inpatient medication list Patient's WBC count today was 4.06. Creatinine improved this morning at 1.10. He is tolerating IV Aztreonam. His rash has subsided, and he is feeling much better this morning. He does not complain of any pain, N/V/D, or urinary symptoms. His outpatient record was reviewed today as well in regards to his biopsy. Blood cultures continue to show no growth. All Other Systems: Reviewed and Negative Medications Current Inpatient Medications Medications (Trade) Dose Ordered Sig/Fco Route Start Time Stop Time Status Last Admin Dose Admin Acetaminophen (Tylenol Tab) 650 mg Q4H PRN PO 09/08/16 00:00 10/08/16 00:00 09/09/16 03:30 650 MG Ondansetron HCl (Zofran Inj) 4 mg Q6H PRN IV 09/08/16 00:00 10/08/16 00:00 09/08/16 15:14 4 MG Morphine Sulfate (MoRPHine SULFATE INJ) 2 mg Q2H PRN IV 09/08/16 00:00 09/22/16 00:00 Morphine Sulfate (MoRPHine SULFATE INJ) 4 mg Q2H PRN IV 09/08/16 00:00 09/22/16 00:00 09/08/16 00:45 4 MG Tramadol HCl (Ultram Tab) 100 mg Q4H PRN PO 09/08/16 00:00 10/08/16 00:00 09/09/16 15:41 100 MG Tramadol HCl (Ultram Tab) 50 mg Q4H PRN PO 09/08/16 00:00 10/08/16 00:00 Zolpidem Tartrate (Ambien Tab) 5 mg HS PO 09/08/16 21:00 10/08/16 20:59 09/10/16 23:05 5 MG Pantoprazole Sodium 40 mg 40 mg QAM PO 09/08/16 09:00 10/08/16 08:59 09/11/16 07:40 40 MG Aztreonam 2000 mg/ Dextrose 110 ml @ 100 mls/hr Q8H IV 09/10/16 17:00 09/24/16 16:59 09/11/16 07:40 100 MLS/HR Methylprednisolone Sodium Succinate/ Syringe (Solu-Medrol IV/ Syringe) 0.96 ml @ 1.5 mls/min Q6 IV 09/10/16 18:00 10/10/16 17:59 09/11/16 05:59 1.5 MLS/MIN Diphenhydramine HCl (Benadryl Inj) 25 mg Q6 IV 09/10/16 18:00 10/10/16 17:59 09/11/16 05:59 25 MG Objective Vital Signs Date Time Temp Pulse Resp B/P Pulse Ox O2 Delivery O2 Flow Rate FiO2 09/11/16 08:00 Room Air 09/11/16 07:37 36.9 88 20 124/68 96 Room Air 09/11/16 04:00 Room Air 09/11/16 03:47 36.6 80 20 129/75 94 Room Air 09/10/16 23:59 Room Air 09/10/16 23:00 37.0 81 17 108/68 94 Room Air 09/10/16 20:00 Room Air 09/10/16 19:38 37.1 96 18 121/76 94 Room Air 09/10/16 16:45 95 112/70 95 Room Air 09/10/16 16:30 96 110/70 94 Room Air 09/10/16 16:15 116 103/64 95 Room Air 09/10/16 16:00 97 143/76 95 Room Air 09/10/16 16:00 Room Air 09/10/16 15:51 104 138/77 94 Room Air 09/10/16 15:47 101 125/64 94 Room Air 09/10/16 15:41 98 107/72 94 Room Air 09/10/16 15:36 116 116/74 94 Room Air 09/10/16 15:31 36.7 102 113/73 95 Room Air 09/10/16 15:26 106 99/64 94 Room Air 09/10/16 15:26 36.7 106 18 99/64 94 Room Air 09/10/16 15:22 108 128/72 94 Room Air 09/10/16 15:06 102 105/58 09/10/16 15:00 85/53 09/10/16 14:56 36.3 105 93/60 09/10/16 14:48 103 81/43 09/10/16 14:41 102 74/39 09/10/16 14:40 36.5 105 16 94/60 93 Room Air 09/10/16 12:00 37.2 85 18 135/77 95 Room Air 09/10/16 12:00 Room Air Physical Exam General Appearance: WD/WN, no apparent distress Eyes: normal inspection, sclerae normal ENT: hearing grossly normal Neck: supple, trachea midline Respiratory/Chest: no respiratory distress, no accessory muscle use Cardiovascular: + pertinent finding (regular rate) Extremities: normal range of motion Neurologic/Psychiatric: alert, normal mood/affect Skin: normal color, warm/dry, no rash Laboratory Results Item Value Date Time Blood Culture - Preliminary Resulted 09/08/16 0034 Blood NO GROWTH TO DATE. Blood Culture - Preliminary Resulted 09/08/16 0020 Blood NO GROWTH TO DATE. Urine Culture - Final Complete 09/08/16 0015 Urine , Clean Catch NO GROWTH - LESS THAN 1,000 COLONIES/ML Last 24 Hours Test 09/10/16 11:28 09/10/16 15:50 09/11/16 05:57 Bedside Glucose 115 mg/dl Sodium Level 138 mmol/L 140 mmol/L Potassium Level 3.5 mmol/L 4.0 mmol/L Chloride Level 104 mmol/L 107 mmol/L Carbon Dioxide Level 25 mmol/L 25 mmol/L Anion Gap 9.0 mmol/L 8.0 mmol/L Blood Urea Nitrogen 13 mg/dl 18 mg/dl Creatinine 1.50 mg/dl 1.10 mg/dl Est Creatinine Clear Calc Drug Dose 60.4 ml/min 82.5 ml/min Estimated GFR () 56.6 82.4 Estimated GFR (Non- 48.8 71.1 BUN/Creatinine Ratio 8.4 16.2 Random Glucose 122 mg/dl 180 mg/dl Calcium Level 8.3 mg/dl 8.6 mg/dl Magnesium Level 2.0 mg/dl 2.6 mg/dl White Blood Count 4.06 K/uL Red Blood Count 4.11 M/uL Hemoglobin 12.9 g/dL Hematocrit 36.8 % Mean Corpuscular Volume 89.5 fL Mean Corpuscular Hemoglobin 31.4 pg Mean Corpuscular Hemoglobin Concent 35.1 g/dl Platelet Count 176 K/uL Mean Platelet Volume 10.4 fL Neutrophils (%) (Auto) 81.4 % Lymphocytes (%) (Auto) 14.0 % Monocytes (%) (Auto) 4.4 % Eosinophils (%) (Auto) 0.0 % Basophils (%) (Auto) 0.0 % Neutrophils # (Auto) 3.30 K/uL Lymphocytes # (Auto) 0.57 K/uL Monocytes # (Auto) 0.18 K/uL Eosinophils # (Auto) 0.00 K/uL Basophils # (Auto) 0.00 K/uL RDW Standard Deviation 44.7 fL RDW Coefficient of Variation 13.5 % Immature Granulocyte % (Auto) 0.2 % Immature Granulocyte # (Auto) 0.01 K/uL Assessment and Plan Patient with E. Coli UTI and bacteremia transferred from [facility] following recent prostate biopsy. The patient is currently on IV Aztreonam. He continues to improve, so therefore will change to PO Bactrim DS BID. Recommend completing 4 weeks of therapy with potential prostate involvement. We will follow up with him as an outpatient, and he is otherwise OK for D/C from ID perspective. Thanks PROVIDER ADDENDUM: Patient reviewed with Ms. Mark. Agree with above assessment.
[2016-09-11 11:42] VITALS: BP 157/53; PULSE 100; TEMP 36.7; O2SAT 95
[2016-09-11] MEDS ORDERED: ERTAPENEM IV 1 GM in SODIUM CHLOR 0.9% AD-VAN 50ML 50 ML IV SCH (12:00)
[2016-09-11] MEDS ORDERED: SULFAMETHOXAZOLE/TRIMETHOPRIM DS 800/160MG TAB PO SCH (13:00)
--- NOTE | 2016-09-11 14:08 | Discharge Instructions ---
Discharge Instructions Date of Service September 11, 2016. Admission Reason for Admission: Sepsis Discharge Discharge Diagnosis / Problem: Sepsis Discharge Goals Goal(s): Decrease discomfort, Improve disease control, Diagnostic testing, Therapeutic intervention Activity Recommendations Activity Limitations: resume your previous activity . Instructions / Follow-Up Instructions / Follow-Up You were admitted to hospital with E.coli infection in your blood that likely arose as a complication of your prostate biopsy. You were treated with IV antibiotics and your symptoms and clinical picture began to improve. Switching to ertapenem caused an adverse anaphylactic reaction and thus usage should be avoided in the future. On discharge, you have been put on an oral antibiotic called Bactrim. Please complete 25 more days of this antibiotic (for a total antibiotic course of 28 days) for complete eradication of bacteria from your system. You will have follow up appointments scheduled with your PCP, infectious diseases doctor, and urology. If you have issues with the timings of these appointments, please call to reschedule with the respective office(s). You may continue all other home medications as previously taken. If you develop any rash, redness, or itchy hives on your skin, please take some Benadryl and seek immediate medical advice from your PCP or infectious diseases doctor. If you develop and tongue swelling, throat tightness, or difficulty breathing, please seek emergency medical care, including calling 911 and use your EpiPen. Current Hospital Diet Patient's current hospital diet: AHA Diet (Heart Healthy) Discharge Diet Recommended Diet: AHA Diet (Heart Healthy) Pending Studies Studies pending at discharge: no Medical Emergencies . Who to Call and When: Medical Emergencies: If at any time you feel your situation is an emergency, please call 911 immediately. . Non-Emergent Contact Non-Emergency issues call your: Primary Care Provider, Urologist, Specialist ( Infectious disease) Call Non-Emergent contact if: temperature is above 100.5, you have any medication questions . . "Provider Documentation" section prepared by Jasmin Dodge. . VTE Core Measure Inpt VTE Proph given/why not?: SCD's
[2016-09-11] MEDS ORDERED: SULF-183 PO (14:14)
[2016-09-11] MEDS ORDERED: DIPH1TAB87 PO (15:08)
[2016-09-11] MEDS ORDERED: EPP3/2 IM (15:08)
[2016-09-11 15:22] VITALS: BP 157/53; PULSE 100; TEMP 36.7; O2SAT 95
--- NOTE | 2016-09-11 15:24 | Discharge Summary ---
Discharge Summary Date of Service September 11, 2016. (Alka. Dodge MD) Discharge Summary Admission Date: September 07, 2016 at 23:50 Discharge Date: September 11, 2016 Discharge Disposition: Home Principal Diagnosis: Sepsis (Alka. Dodge MD) Problems/Secondary Diagnoses: BPH Sepsis with ESBL Ecoli bacteremia Acute prostatitis Anaphylaxis secondary to Ertapenam Leukocytosis GERD Hypomagnesemia Consultations: Urology Infectious Disease (Olivia Patino MD) Medication Reconciliation New Medications: Diphenhydramine Hcl (Benadryl Allergy) 25 Mg Tab 25 MG PO Q6 for rash, #30 TAB Epinephrine (Epipen) 0.3 Mg/0.3 Ml Inj 0.3 MG IM UD PRN for anaphylaxis, #1 BOX Sulfamethoxazole-Trimethoprim (Smz-Tmp Ds) 1 Tab Tab 1 TAB PO Q12 for 25 Days, #50 TAB Continued Medications: Esomeprazole Magnesium (Nexium) 40 Mg Capcr 40 MG PO DAILY, CAP Zolpidem Tartrate (Ambien) 5 Mg Tab 5 MG PO HS, TAB Discharge Exam Patient well, denies acute overnight issues. Keen for home. Review of Systems: Constitutional: No chills, No fever ENT: No trouble swallowing Respiratory: No cough, No shortness of breath, No wheezing Cardiovascular: No chest pain, No edema, No palpitations Abdomen: No constipation, No diarrhea, No nausea, No pain, No vomiting Genitourinary - Male: No dysuria, No hematuria, No penile discharge, No urinary frequency, No urinary hesitancy, No urinary incontinence, No urinary retention, No urinary urgency Neurologic: No balance problems, No numbness/tingling, No weakness Integumentary: No itch, No new/changing skin lesions, No rash Physical Exam: General Appearance: WD/WN, no apparent distress Eyes: normal inspection ENT: hearing grossly normal, pharynx normal Neck: supple, no adenopathy, no JVD Respiratory/Chest: lungs clear, normal breath sounds, no respiratory distress, no accessory muscle use Cardiovascular: regular rate, rhythm, no murmur, normal peripheral pulses Abdomen / GI: normal bowel sounds, non tender, soft Extremities: normal inspection, no calf tenderness, normal capillary refill , no pedal edema Neurologic/Psychiatric: alert, normal mood/affect, oriented x 3 Skin: normal color, warm/dry, no rash (Alka. Dodge MD) Hospital Course Patient is a 61 year old male without significant PMHx that was transferred from [facility] with E. Coli UTI and sepsis following recent prostate biopsy. Sepsis with ESBL Ecoli bacteremia 2/2 prostatitis - s/p prostate biopsy 09/05/16- pathology results benign. - Was on IV vanc and Zosyn at [facility] and then switched to IV Zosyn and Ciprofloxacin at [facility] x 3 days. - Urology consulted- recs appreciated - PRN morphine 4mg IV, tramadol 100mg q4h PRN, zofran 4mg IV q6h offered, but usage diminished throughout admission - One dose of IV Ertapenem given before switching after adverse reaction (see below) - ID consulted - recs appreciated - IV Aztreonam 2g q8h given and tolerated well - Switched to PO Bactrim DS for total 28 day course on discharge Anaphylaxis 2/2 Ertapenam - Developed diffuse body flushing, diffuse pruritic hives, swelling and hypotension with administration of half of first dose. No throat swelling or wheezing. - Ertapenam listed as allergy and discontinued. - Patient immediately given epinephrine, high dose Solu-Medrol and diphenhydramine which helped to resolve immediate flushing, swelling and pruritic hives - IV NSS bolus given which improved BP - Solu-Medrol 60mg q6h and diphenhydramine 25mg IV q6h scheduled for 24 hours with complete resolution of symptoms. - Patient discharged with PRN benedryl and epi-pen for emergency use Leukocytosis 2/2 to Bacteremia - 13.08 on admission, downtrended since commencing antibiotics - WNL at discharge - Plans to continue antibiotics GERD - Protonix 40 mg PO qAM Hypomagnesemia - Mg 1.7 on admission, supplemented and since resolved DVT prophylaxis - SCD Code Status - Full Resuscitation Total Time Spent: Greater than 30 minutes This includes examination of the patient, discharge planning, medication reconciliation, and communication with other providers. (Alka. Dodge MD) Discharge Instructions Please refer to the electronic Patient Visit Report (Discharge Instructions) for additional information. (Alka. Dodge MD) Additional Copies To Sukumar Clay MD; Js Avila MD, Urology Resident Tracking Resident Involvement: Resident Care Provided Care Provided: Adult Hospital Medicine (Alka. Dodge MD) Reviewed: Pt Seen/Exam by Me (Olivia Patino MD) History Resident Physician Supervision Note: I was present with Dr. Dodge during the history and exam. I discussed the case with the resident and agree with the findings and plan as documented in the note. Any exceptions or clarifications are listed here: Rash resolved, facial swelling resolved, BPs no longer low. Feeling good and ready to go home Vitals reviewed NAD RRR no mgr Lungs CTAB no wheezes and moving air throughout Abd soft NT ND +BS Ext no edema SKin: no rash 61 yo male with ESBL E. coli sepsis and bacteremia after prostate bx, with anaphylaxis due to Ertapenem during hospitalization -improved, finish out 4 week course of abx with po Bactrim -f/u with ID as outpt, f/u Urology -continue Benadryl prn and return to ER if develops rash, SOB, or any other acute concerns--> gave Rx for Epi Pen for home use Documented By: Olivia Patino (Olivia Patino MD)
[2016-09-11 15:27] VITALS: BP 134/74; PULSE 91; TEMP 36.7; O2SAT 96
== END 2016-09-11 17:26 | disposition home or self-care (01) | DRG 872 ==
LOC: C.2T 23:50
PROVIDERS: ADMIT Hospitalist; ATTEND Family Medicine
DX: A41.9 Sepsis, unspecified organism (principal); N41.0 Acute prostatitis; K21.9 Gastro-esophageal reflux disease without esophagitis; E83.42 Hypomagnesemia; F17.200 Nicotine dependence, unspecified, uncomplicated; G47.00 Insomnia, unspecified; L50.0 Allergic urticaria; T36.1X5A Adverse effect of cephalosporins and other beta-lactam antibiotics, initial encounter; Z98.890 Other specified postprocedural states; Y92.239 Unspecified place in hospital as the place of occurrence of the external cause; R97.20 Elevated prostate specific antigen [PSA]

== ENCOUNTER → 2016-09-17 | Outpatient (CLI) | payer BC ==
[~2016-09-17] MED LIST: DIPH1TAB87 PO; EPP3/2 IM; NXM/40 PO; SULF-183 PO; ZOLP5TAB PO
[2016-09-17 11:46] LABS: HEMATOCRIT 42.9 % (42-52); MEAN CELL VOLUME 92.1 fL (80-100); MEAN CORPUSCULAR HEMOGLOBIN 30.9 pg (25-34); MEAN CORPUSCULAR HGB CONC 33.6 g/dl (32-36); MEAN PLATELET VOLUME 9.8 fL (7.4-10.4); PLATELET COUNT 399 K/uL (130-400); RED BLOOD COUNT 4.66 M/uL (4.7-6.1); WHITE BLOOD COUNT 11.52 K/uL (4.8-10.8)
[2016-09-17 12:08] LABS: ALKALINE PHOSPHATASE 77 U/L (45-117); ALT/SGPT 35 U/L (12-78); BLOOD UREA NITROGEN 19 mg/dl (7-18); BUN/CREATININE RATIO 15.6 (10-20); CARBON DIOXIDE 26 mmol/L (21-32); CHLORIDE 105 mmol/L (98-107); GLUCOSE 98 mg/dl (70-99); POTASSIUM 4.2 mmol/L (3.5-5.1); SODIUM 138 mmol/L (136-145)
[2016-09-17 12:10] LABS: ALB/GLOB RATIO 0.9 (0.9-2); AST/SGOT 18 U/L (15-37)
[2016-09-17 12:40] LABS: BASO % 0.4 %; BASO ABS # 0.05 K/uL (0-0.2); COMPLETE YES; EOS % 1.7 %; IG% 5.8 %; LYMPH % 21.5 %; LYMPH ABS # 2.48 K/uL (1.2-3.4); MONO % 10.1 %; NEUT % 60.5 %
[2016-09-17 13:19] LABS: CALCIUM 9.4 mg/dl (8.5-10.1)
== END | disposition home or self-care (01) ==
LOC: C.LAB1850 10:08
PROVIDERS: ATTEND Physician Assistant
DX: N41.9 Inflammatory disease of prostate, unspecified (principal)